=== PATIENT | female | born 1945 | race Caucasian/White ===

== ENCOUNTER 2018-08-29 10:02 | Emergency (ER) | payer MEDICARE, OTHER ==
[~2018-08-29] VITALS: Ht 160 cm; Wt 61.2 kg
--- NOTE | 2018-08-29 10:42 | NUR ---
VERNA STODDARD AT BEDSIDE FOR MSE.
--- NOTE | 2018-08-29 10:56 | NUR ---
Patient discharged to home in stable conditon. Written and verbal after care instructions given. Patient verbalizes understanding of instructions. ALL BELONGINGS W/ PT. SKIN TEAR DRESSED W/ SURGICELL, GAUZE, AND ROLL GAUZE.
[2018-08-29 10:57] VITALS: BP 101/66
== END 2018-08-29 11:08 | disposition home or self-care (01) ==
LOC: ER 10:02
DX: S61.211A Laceration without foreign body of left index finger without damage to nail, initial encounter (principal); X58.XXXA Exposure to other specified factors, initial encounter; Y93.89 Activity, other specified; Y92.89 Other specified places as the place of occurrence of the external cause; Y99.8 Other external cause status
CPT/HCPCS: A4217; A4663